=== PATIENT | female | born 1980 | race Caucasian/White ===

== ENCOUNTER 2018-07-04 21:13 | Emergency (ER) | payer SELFPAY ==
[2018-07-04 21:13] VITALS: BP 141/78; PULSE 59; RESP 16; TEMP 36.5; O2SAT 96; BMI 34.4
--- NOTE | 2018-07-04 22:28 | ED.VISSUMM ---
- ER Visit Summary Date of Service: 07/04/18 Chief Complaint: Dental pain History of Present Illness: The patient is a 38 F with 3 days of right upper dental pain. No jaw swelling no fever chills no difficulty swallowing Physical Examination: Tenderness over the first molar right upper side. No periapical abscess no jaw swelling. Emergency Department Course and Treatment: [I will treat with antibiotics and analgesia.] Treatment Plan: [] Disposition: [Discharge stable condition] Impression: [Odontalgia] This note was generated with [employer] dictation software. It may contain incorrect words, spelling, and punctuation that were not noted in review of the chart prior to signing ED Disposition - Plan for ED Patient: Disposition: Home or Assisted Living Instructions: ED Tooth Pain Prescriptions: Naproxen [Naprosyn] 500 mg PO BID PRN #20 tab Clindamycin [Cleocin] 150 mg PO 4X/DAY #40 cap Referrals: Everton Riggins MD [Primary Care Provider] - 3-5 Days
--- NOTE | 2018-07-04 22:32 | ED.DCSUM_ITS ---
- ER Visit Summary Date of Service: 07/04/18 Chief Complaint: Dental pain History of Present Illness: The patient is a 38 F with 3 days of right upper dental pain. No jaw swelling no fever chills no difficulty swallowing Physical Examination: Tenderness over the first molar right upper side. No periapical abscess no jaw swelling. Emergency Department Course and Treatment: [I will treat with antibiotics and analgesia.] Treatment Plan: [] Disposition: [Discharge stable condition] Impression: [Odontalgia] This note was generated with [employer] dictation software. It may contain incorrect words, spelling, and punctuation that were not noted in review of the chart prior to signing ED Disposition - Plan for ED Patient: Disposition: Home or Assisted Living Instructions: ED Tooth Pain Prescriptions: Naproxen [Naprosyn] 500 mg PO BID PRN #20 tab Clindamycin [Cleocin] 150 mg PO 4X/DAY #40 cap Referrals: Everton Riggins MD [Primary Care Provider] - 3-5 Days
[2018-07-04] MEDS: HYDROcodone Bitartrate/Apap 5/325 Tablet PO (22:36)
[2018-07-04] MEDS: Clindamycin HCl 150 MG Capsule 300 MG PO (22:40)
[2018-07-04 22:41] VITALS: PULSE 64; RESP 15; O2SAT 94
== END 2018-07-04 22:42 | disposition home or self-care (01) ==
PROVIDERS: Emergency Provider Emergency Medicine; Family Provider Family Medicine; PCP Family Medicine
DX: K08.89 Other specified disorders of teeth and supporting structures (principal); Z72.0 Tobacco use
CPT/HCPCS: 99283

== ENCOUNTER 2019-09-11 08:53 | Emergency (ER) | payer OTHER, SELFPAY ==
[2019-09-11 08:54] VITALS: BP 140/73; PULSE 80; RESP 16; TEMP 36.4; O2SAT 95; BMI 37.5
--- NOTE | 2019-09-11 09:11 | ED.DCSUM_ITS ---
History of Present Illness Chief Complaint: Headache Informant: Patient Narrative: 39-year-old female presents with concern for nausea, vomiting, headache, upper respiratory congestion. States this began approximately 1 week ago. States that she was feeling improved until last night when she began having a headache as well as vomiting again. States that she has fullness in her bilateral ears. Denies any fever or chills. States that she has a persistent smoker's cough. States that this may have been slightly increased. Denies any abdominal pain, urinary symptoms. Denies any vaginal bleeding or discharge. States that her daughter has similar symptoms. Past Medical History - Allergies and Home Meds Allergies/Adverse Reactions: Allergies diphenhydramine HCl [From Benadryl] Adverse Reaction (Verified 09/11/19 08:56) Itching Penicillins Adverse Reaction (Verified 09/11/19 08:56) Unknown Primary Care Physician: Everton Riggins MD [NON-STAFF] - Past Medical History: None Surgical History: tonsillectomy, - - Bilateral tubal ligation 8 years ago, ear tubes Lives: With Family Smoking Status: Current every day smoker - Family History Maternal Family History: Reports: No pertinent history Sibling Family History: Reports: No pertinent history Paternal Family History: Reports: No pertinent history Review of Systems General: Denies: Chills, Fever, Sweats Eyes: Denies: Visual changes - bilaterally, Diplopia ENT: Reports: Bilateral ear pain, Rhinorrhea. Denies: Sore throat Cardiovascular: Denies: Chest pain, Palpitations Respiratory: Reports: Cough. Denies: Dyspnea, Dyspnea on exertion Gastrointestinal: Reports: Nausea, Vomiting. Denies: Abdominal pain, Diarrhea, Melena, Hematochezia Genitourinary: Denies: Dysuria, Hematuria, Frequency Musculoskeletal: Denies: Back pain, Extremity Pain Skin: Denies: Rash, Wounds Neurological: Reports: Headache. Denies: Weakness, Numbness Physical Exam Vital Signs/Narrative: Vital Signs Temp Pulse Resp BP Pulse Ox 09/11/19 08:54 97.5 F L 80 16 140/73 H 95 Inital Vital Signs reviewed: Yes General: Well nourished, Well developed, No Acute Distress Head: Normocephalic, Atraumatic Eyes: Perrl, EOMI ENT: Moist mucous membranes, No rhinorrhea, - - Bilateral effusions without erythema or retraction. Neck: Supple, Nontender Cardiovascular: Regular rate, Regular rhythm, No murmurs Respiratory: No distress, CTA bilaterally, Chest nontender Abdomen: Soft, Nontender, Nondistended, Normal bowel sounds Back: Nontender, Normal Inspection Extremities: Nontender, No edema Skin: Normal color, No rash Neurological: Alert, Oriented x3, Cranial nerves II-XII grossly intact, Normal Strength, Normal Sensation Psychological: Normal affect, Normal Mood Diagnostic/Tx/Re-eval Clinical Impression(s) from Imaging Studies Chest X-Ray 09/11/19 09:37 IMPRESSION: Normal x-ray examination of the chest. Electronically Signed: Trev Manzo MD at 10:11 EDT , Service support , Laboratory Data 09/11/19 09/11/19 09/11/19 09:20 09:20 09:23 WBC 12.4 H RBC 4.82 Hgb 16.3 H Hct 45.9 MCV 95.2 MCH 33.8 H MCHC 35.5 RDW Std Deviation 46.7 H RDW Coeff of Sebastian 13.3 Plt Count 284 MPV 11.3 Immature Gran % (Auto) 0.600 Neut % (Auto) 73.3 H Lymph % (Auto) 19.7 [place] % (Auto) 5.3 Eos % (Auto) 0.7 Baso % (Auto) 0.4 Absolute Neuts (auto) 9.1 H Absolute Lymphs (auto) 2.44 Nucleated RBC % 0 Sodium Potassium Chloride Carbon Dioxide Anion Gap BUN Creatinine Estim Creat Clear Calc Est GFR (MDRD) Af Amer Est GFR (MDRD) Non-Af BUN/Creatinine Ratio Glucose Calcium Total Bilirubin AST ALT Alkaline Phosphatase Total Protein Albumin Globulin Albumin/Globulin Ratio Urine Color Brown Urine Clarity Turbid Urine pH 5.0 Ur Specific Shirland 1.030 Urine Protein 15 H Urine Glucose (UA) Normal Urine Ketones 5 H Urine Occult Blood Negative Urine Nitrite Negative Urine Bilirubin 1 H Urine Urobilinogen 1 H Ur Leukocyte Esterase 25 H Urine RBC 0 SEEN Urine WBC 0 SEEN Ur Squamous Epith Cells 0-5 SEEN Amorphous Sediment 4+ Urine Bacteria 0 SEEN Urine Mucus 0 SEEN Urine Test Negative 09/11/19 09:23 WBC RBC Hgb Hct MCV MCH MCHC RDW Std Deviation RDW Coeff of Sebastian Plt Count MPV Immature Gran % (Auto) Neut % (Auto) Lymph % (Auto) [place] % (Auto) Eos % (Auto) Baso % (Auto) Absolute Neuts (auto) Absolute Lymphs (auto) Nucleated RBC % Sodium 138 Potassium 3.8 Chloride 109 H Carbon Dioxide 24.0 Anion Gap 5 BUN 9 Creatinine 0.90 Estim Creat Clear Calc 80.80 Est GFR (MDRD) Af Amer 89 Est GFR (MDRD) Non-Af 74 BUN/Creatinine Ratio 10.0 Glucose 125 H Calcium 8.4 L Total Bilirubin 0.50 AST 13 L ALT 24 Alkaline Phosphatase 103 Total Protein 7.0 Albumin 3.9 Globulin 3.1 Albumin/Globulin Ratio 1.3 Urine Color Urine Clarity Urine pH Ur Specific Shirland Urine Protein Urine Glucose (UA) Urine Ketones Urine Occult Blood Urine Nitrite Urine Bilirubin Urine Urobilinogen Ur Leukocyte Esterase Urine RBC Urine WBC Ur Squamous Epith Cells Amorphous Sediment Urine Bacteria Urine Mucus Urine Test - Medical Decision Making Patient appears well nontoxic. Vital signs within normal limits. No focal neurologic deficit. No meningeal signs. Lab work within normal limits as well as negative chest x-ray. Patient was given Toradol, Zofran, 1 L of fluid. States this did help resolve her symptoms. Will be given Zofran for home. Advised on Motrin and Tylenol for pain. Advised on home quarantine until coronavirus testing can be resulted. Asked to return for any new or worsening symptoms. Discharged home in stable condition. Impression: 1. Viral illness 2. Nausea and vomiting 3. Headache ED Disposition - Plan for ED Patient: Disposition: Home or Assisted Living Instructions: ED Headache Unspecified, ED Upper Resp Infec No Abx Tx Prescriptions: Ondansetron [Zofran Odt] 4 mg PO Q8H PRN PRN #10 tab PRN Reason: Nausea Transmission Status: Pending to [facility] #[id number] Referrals: Everton Riggins MD [NON-STAFF] -
[2019-09-11] MEDS: 0.9% Normal Saline 1,000 ML 1000 ML IV (09:23)
[2019-09-11] MEDS: Ketorolac 15 MG/ML Vial IV (09:24)
[2019-09-11] MEDS: Ondansetron 4 MG/2 ML Vial IV (09:24)
[2019-09-11 09:32] LABS: Bacteria 0 SEEN /hpf (None Seen); Mucous, Urine 0 SEEN /hpf (<or=2+); Red Blood Cells-Urine 0 SEEN /hpf (0-5); White Blood Cells 0 SEEN /hpf (0-5)
[2019-09-11 09:36] LABS: Color, Urine Brown (Yellow); Glucose, Dipstick Normal (Normal); Ketone-Dipstick 5 mg/dl (Negative); Leukocyte Esterase-Dipstick 25 /ul (Negative); Nitrite-Dipstick Negative (Negative); Occult Blood-Urine Negative /ul (Negative); Protein-Dipstick 15 mg/dl (Negative); Urine Clarity Turbid (Clear); Urine Urobilinogen 1 mg/dl (Normal)
[2019-09-11 09:37] LABS: Absolute Lymphocyte Count 2.44 X10^3/uL (0.83-4.51); Absolute Neutrophil Count 9.1 X10^3/uL (2.0-7.7); Basophil# 0.05 X10^3/uL; Basophil% 0.4 % (0-1); Eosinophil# 0.09 X10^3/uL; Eosinophils% 0.7 % (0-5); Hematocrit 45.9 % (37-47); Hemoglobin 16.3 g/dL (12.0-15.0); Lymphocyte # 2.44 X10^3/ul (4.0); Lymphocyte % 19.7 % (19-41); Mean Corp Hgb Conc 35.5 g/dL (32-36); Mean Corpuscular Hgb 33.8 pg (27.0-32.0); Mean Corpuscular Volume 95.2 fL (81-99); Mean Platelet Vol. 11.3 fl (6.2-12.0); Monocyte# 0.66 X10^3/uL; Monocyte% 5.3 % (0-10); NRBC Flagged by Analyzer 0 % (0-5); Neutrophil # 9.06 X10^3/uL (2.7-7.7); Neutrophil % 73.3 % (47-70); Platelet Count 284 K/mm3 (150-450); RBC Distribution Width CV 13.3 % (11.6-14.6); RBC Distribution Width SD 46.7 fl (35.1-43.9); Red Blood Count 4.82 M/mm3 (4.2-5.4); White Blood Count 12.4 K/mm3 (4.4-11.0)
--- NOTE | 2019-09-11 09:37 | RAD_ITS ---
STUDY: X-RAY CHEST REASON FOR EXAM: Female, 39 years old. N/V SINCE SATURDAY WITH HEADACHE TECHNIQUE: Single AP portable view of the chest. COMPARISON: 2012 FINDINGS: The lungs are clear and expanded. There is no demonstrated pleural abnormality. Normal size heart. Normal mediastinum and shayne. Normal visualized pulmonary arteries. Normal visualized aortic arch and descending thoracic aorta. Normal visualized thoracic spine. Normal visualized ribs, clavicles, and shoulders. There is no demonstrated abnormality of the visualized soft tissue structures of the upper abdomen. RAD/Chest 1 View (Portable) IMPRESSION: Normal x-ray examination of the chest. Electronically Signed: Trev Manzo MD at 10:11 EDT , Service support ,
[2019-09-11 09:44] LABS: Urine Bilirubin Dipstick 1 mg/dL (Negative)
[2019-09-11 09:45] LABS: Squamous Epithelial Cells - UA 0-5 SEEN /hpf (5-10)
[2019-09-11 09:46] LABS: Amorphous Sediment 4+; Internal QC Validated? YES +Cl - CLEAR BKGD; Pregnancy, Urine Negative Negative
[2019-09-11 09:51] LABS: ALB/GLOB Ratio 1.3 RATIO (0.9-2.4); AST(SGOT) 13 U/L (15-37); Alanine Aminotransfer ALT/SGPT 24 U/L (13-56); Albumin, Serum 3.9 g/dL (3.2-5.0); Alkaline Phosphatase 103 U/L (45-117); Anion Gap 5 (5-15); BUN 9 mg/dL (7-18); Calcium,Total 8.4 mg/dL (8.5-10.1); Chloride 109 mmol/L (98-107); EST Glomerular Filtration Rate 74 mL/min (>60); Est Glom Filt Rate - Afr Amer 89 mL/min (>60); Globulin 3.1 g/dL (2.2-4.2); Glucose 125 mg/dL (74-106); Potassium 3.8 mmol/L (3.5-5.1); Sodium Level 138 mmol/L (136-145)
[2019-09-11 10:32] VITALS: BP 92/69; PULSE 66; RESP 16; O2SAT 96
--- NOTE | 2019-09-11 10:33 | ED.RN ---
REVIEWED D/C INSTRUCTIONS, FOLLOW UP CARE, PRESCRIPTION, AND S/S THAT WOULD WARRANT A RETURN TO THE ED WITH PT. PT VERBALIZED AN UNDERSTANDING AND DENIES FURTHER QUESTIONS FOR THIS RN. PT SKIN P/W/D, RESP EVEN AND UNLABORED, PT A&O X 3, NO DISTRESS NOTED. PT AMBULATED OUT OF ED, GAIT STEADY.
[2019-09-11 11:39] LABS: Probe Check PASS; Specimen Processing Control PASS
== END 2019-09-11 10:34 | disposition home or self-care (01) ==
PROVIDERS: Emergency Provider Emergency Medicine
DX: R11.2 Nausea with vomiting, unspecified (principal); B34.9 Viral infection, unspecified; R51 Headache; J41.0 Simple chronic bronchitis; F17.200 Nicotine dependence, unspecified, uncomplicated
CPT/HCPCS: 71045; 80053; 81001; 81025; 85025; 87635; 94799; 96361; 96374; 96375; 99284; J7030; A4216; J2405; U0003

== ENCOUNTER → 2020-04-26 10:40 | Outpatient (CLI) | payer OTHER, SELFPAY ==
--- NOTE | 2020-04-26 | IMM_PTH ---
PATIENT: ISABELLE DOUGHERTY LOC: [facility] U#:[id number] AGE/SX: 44/F ROOM: RE04/26/[address]: Dr. Rosa Aquino MD : 1980 BED: DIS: SPEC #: [id number] RECD: 04/27/20 11:16 STATUS: JAY REQ #: [id number] MARIZOL: 04/26/20 00:[address]: Rosa Aquino DEPT: IMMUNOHISTOCHEMISTRY RECD BY: Ana Vasquez ENTERED: 04/27/20 11:23 SP TYPE: IMMUNO OTHR DR: No Primary Care Phys Tissues: Left breast, NOS Procedures: E-CAD (initial) SMA (add) CALPONIN-1 (add) CK8 (add) P40 (add) PHYSICIAN & INSTITUTION [place] [id number] SPECIMEN INFORMATION: Tissue Source: Left breast, inferior lateral, stereotactic core biopsy Clinical Info: Left breast inferior lateral quadrant microcalcification Specimen Number: [id number] #2 & 4 CPT code: 84332, 18616 x4 METHODOLOGY: Deparaffinized sections of prefer/formalin-fixed tissue or PAP/DQ stained slides are incubated with monoclonal/polyclonal antibodies/oligonucleotide probes. Localization is made via biotin free immunoperoxidase method. Appropriate controls are performed and reacted as expected. Results on target cell population are indicated in the following table: RESULTS: ANTIBODY / CLONE RESULT Block 2 E-Cad (ECH-6) negative CK8 (41bvpnR60) positive Block 4 P40 (BC28) positive Calponin-1 (RO697K) positive Actin (1A4) positive These tests were developed and their performance characteristics determined by [facility]. They may not have been cleared or approved by the U.S. Food and Drug Administration. The FDA has determined that such clearance or approval is not necessary. The above immunohistochemical/dualISH markers are ordered and reviewed by the Pathologist. INTERPRETATION: Left breast, inferior lateral, stereotactic core biopsy: Atypical lobular hyperplasia. Adenosis. AM:alex 04/28/2020
--- NOTE | 2020-04-26 11:00 | BRBX_PTH ---
PATIENT: ISABELLE DOUGHERTY LOC: [facility] U#:[id number] AGE/SX: 44/F ROOM: RE04/26/[address]: Dr. Rosa Aquino MD : 1980 BED: DIS: SPEC #: [id number] RECD: 04/26/20 12:00 STATUS: JAY EMILIE #: [id number] MARIZOL: 04/26/20 11:[address]: Rosa Aquino DEPT: SURGICAL PATHOLOGY RECD BY: Judit Argueta ENTERED: 04/26/20 12:35 SP TYPE: BREAST BX RAVI DR: No Primary Care Phys Tissues: Breast, NOS Procedures: Surgery Specimen Level IV HEADER OPERATION: Left stereotactic needle core biopsy PRE-OP DIAGNOSIS: Left breast inferior lateral quadrant microcalcification TISSUE SUBMITTED: Left breast tissue ISCHEMIC TIME: 2 minutes FIXATION TIME: 8.5 hours MICROSCOPIC DIAGNOSIS Left breast, inferior lateral, core biopsy: Intraductal hyperplasia without atypia. Adenosis with associated microcalcifications. Focal atypical lobular hyperplasia. Fibrocystic change. No evidence of malignancy. See comment. AM:alex 04/27/2020 COMMENT Immunohistochemistry ([id number]) supports the above diagnosis. Case has been reviewed in consultation with Dr. Umanzor who concurs with the above diagnosis. IDC:BIN MICROSCOPIC DESCRIPTION Slides are reviewed. GROSS DESCRIPTION Received in fixative is one container labeled with the patient name and designated left breast. The specimen consists of multiple elongated fragments of melendez-yellow fibroadipose tissue that in aggregate measure 5 x 3 x 0.9 cm. The entire specimen is submitted in six cassettes. / BIN:alex 04/26/20 TC:5 CPT: 12117
--- NOTE | 2020-04-26 12:22 | OP.PCM_ITS ---
Report of Operation Date of Procedure: 04/26/20 Pre-Operative Diagnosis: abnormal calcifications on left breast mammograms Post-Operative Diagnosis: same Surgery/Procedure Performed:: left stereotactic breast biopsy Description of Surgical Findings:: abnormal calcifications of inferior aspect of left breast Type of Anesthesia:: Local - 1% xylocaine Specimen's removed: left breast tissue Estimated Blood Loss (mL): minimal Fluids Replaced: none Description of Procedure: After informed consent was given, the patient was brought into the Breast Biopsy suite. Appropriate time out protocol was followed. The patient was placed in the prone position on the stereotactic biopsy table. The patient?s left breast was then placed in the opening at the head of the biopsy table. A energy management specialist compression mammogram was then obtained in the lateral view. The suspicious radiological lesion was thus identified. Stereo pictures of the lesion were then taken for XYZ coordinates. The Mammotome biopsy stylus was then positioned where it would be entering into the patient?s breast. The skin at this site was then cleansed with a surgical skin preparation. The skin and subcutaneous tissues at this site were then infiltrated with 1% xylocaine. A small skin incision was made with an 11 blade scalpel. The biopsy stylus was then positioned into the patient?s breast at the proper coordinates of depth. Using the Mammotome vacuum-assist device, several core samples of breast tissue were obtained. A specimen mammogram was the obtained. It revealed that the abnormal calcifications were within the specimen. I reviewed this personally and concluded that the tissue sampling was adequate. A hemostatic marker clip was then placed into the biopsy cavity and a energy management specialist film revealed that it was properly deployed. The patient was then placed in the supine position and pressure was applied to the breast until no active bleeding was noted. A nylon suture was placed to reapproximate the skin. A unilateral mammogram in the CC and MLO view were then taken which revealed that the marker clip was in the same area as the previous suspicious lesion. The patient tolerated the procedure well and was discharged from the Breast Biopsy suite in good condition. - Complications none noted
== END ==
PROVIDERS: Referring Provider Surgery; Visit Provider Surgery
DX: R92.1 Mammographic calcification found on diagnostic imaging of breast (principal)
CPT/HCPCS: 19081; 88305; 88341; 88342; J7050

== ENCOUNTER 2020-05-10 07:32 | Day surgery (SDC) | payer OTHER, SELFPAY ==
--- NOTE | 2020-05-08 17:40 | HP.PCM_ITS ---
History and Physical Date of Admission: 05/10/20 Amanda is here for follow up of left breast biopsy done by mammographic stereotactic on 04/26/2020. Pathology reveals - MICROSCOPIC DIAGNOSIS Left breast, inferior lateral, core biopsy: Intraductal hyperplasia without atypia. Adenosis with associated microcalcifications. Focal atypical lobular hyperplasia. Fibrocystic change. No evidence of malignancy. RESULTS: E-Cad (ECH-6) negative CK8 ([id number]) positive P40 (BC28) positive Calponin-1 (PF035W) positive Actin (1A4) Positive She denies problems from the biopsy except for bruising. ? ? PAST MEDICAL HISTORY: None ? PAST SURGICAL HISTORY: Ear surgery Tubes tied Tonsillectomy Vaginoscopy ? MEDICATIONS: Calcium supplementation Diphenhydramine ? ALLERGIES: benadryl, penicillin ? SOCIAL HISTORY: TOB use - yes ? REVIEW OF SYSTEMS: Denies fevers Some bruising at site ? EXAMINATION: Ecchymoses at left breast site with well healed incision ? IMPRESSION: Atypical lobular hyperplasia - left breast ? DISCUSSION/PLAN: I have discussed the above with the patient and her . I have offered the following - open left breast biopsy via wire localization versus continued observation with follow up left breast mammograms in 6 months. They choose the former. I have described the procedure to them, wire localization and then open breast biopsy at [facility]. I have counseled them as to the risks of the procedure, including but not limited to: infection, bleeding, injury to any blood vessels/nerves, scar tissue, cosmetic deformity, wound infections, etc. - they understand. ? The patient was offered a surgery/procedure. The provider and patient have disc ussed in detail the risk of exposure to and/or potential harm posed by the COVID-19 virus with having a surgery/procedure at this time versus the risk of? delaying the surgery/procedure. It is not possible to know either the risk of delaying the surgery or procedure or chance of getting an infection with perfect accuracy, but a joint decision was made between the patient and the provider ?to proceed at this time with the scheduled surgery/procedure. ? The patient wishes to proceed. I have answered all questions to the patient?s satisfaction and the patient has no further questions.
--- NOTE | 2020-05-10 07:53 | BI_ITS ---
SURGICAL BREAST SPECIMEN RADIOGRAPH CLINICAL: Document presence of tissue clip marker in biopsy specimen. FINDINGS: Specimen shows presence of tissue clip marker. Electronically Signed: Bright Frazier MD at 11:36 EDT , Service support , BI/Breast Biopsy Specimen
[2020-05-10 08:05] LABS: Internal QC Validated? YES +Cl - CLEAR BKGD
[2020-05-10 08:08] LABS: Pregnancy, Urine Negative Negative
[2020-05-10] MEDS: Lactated Ringers 1,000 ML 75 ML IV (08:12)
[2020-05-10 08:13] VITALS: BP 123/49; PULSE 53; RESP 16; TEMP 36.2; O2SAT 98; BMI 35.2
--- NOTE | 2020-05-10 09:14 | DCINST_ITS ---
Discharge Diet: No Restrictions Discharge Activity: Return to Normal Activity, May not drive while taking narcotic pain medications. Call your doctor if your incision/area has: Continuous Slow Oozing, Foul Smelling Discharge Additional Instructions: Recommended pain control regimen - May take 600 mg ibuprofen (Motrin) and then in 3-4 hours, may take 650 mg acetaminophen (Tylenol), then in 3-4 hours may take 600 mg ibuprofen, then in 3- 4 hours may take 650 mg acetaminophen and so on for 2-3 days May take narcotic pain medication for pain that is not controlled by above and at night for comfort through the night Leave dressings in place May get dressings wet in shower - do not scrub in the area and pat dry Do not soak - no tub baths/swimming For breast surgery - Wear supportive bra during the day Swelling and bruising will occur in the area, ice packs to the area may provide comfort, apply as tolerated Avoid excessive bouncing/jumping for at least two weeks Please call for a follow up appointment at the office to be seen in 1 week for a date and time available at your convenience. Call . Allergies/Adverse Reactions: Allergies diphenhydramine HCl [From Benadryl] Adverse Reaction (Verified 05/10/20 08:12) Itching Penicillins Adverse Reaction (Verified 05/10/20 08:12) Unknown Medications to take at Discharge Calcium Carbonate [Tums] 500 mg PO DAILY@0800 PRN 05/05/20 Hydrocodone Bitart/Apap 5-325 [[place] 5MG-325MG] 1 tablet PO Q8H PRN 4 Days #10 tablet 05/10/20 The following prescriptions were given: Hydrocodone Bitart/Apap 5-325 [[place] 5MG-325MG] 1 tablet PO Q8H PRN 4 Days #10 tablet PRN Reason: Pain Transmission Status: Sent to [facility] #30 Primary Care Physician: Care Physician,No Primary [Primary Care Provider] - Please Follow Up With: Rosa Aquino MD When: see above, call
--- NOTE | 2020-05-10 09:20 | OP.PCM_ITS ---
Report of Operation Date of Procedure: 05/10/20 Pre-Operative Diagnosis: left breast atypical lobular hyperplasia by needle core biopsy Post-Operative Diagnosis: same Surgery/Procedure Performed:: left breast biopsy via wire localization Description of Surgical Findings:: lower outer quadrant of left breast Type of Anesthesia:: General Anesthesiologist: Camden Marie Specimen's removed: left breast tissue Estimated Blood Loss (mL): < 5 Fluids Replaced: 800 ml RL Description of Procedure: After informed consent was given, the patient was brought into the Breast Stereotactic Radiology suite. Appropriate time out protocol was followed. The patient was then placed in the prone position on the Barbeau stereotactic table. The patient?s left breast was placed in the opening at the head of the table. A nuclear station operator compression mammogram was then obtained in the lateral view. The marker clip that was previously placed was identified. Stereo pictures of the lesion were then taken for XYZ coordinates. The Kopans needle was then positioned where it would be entering into the patient?s breast. The skin at this site was then cleansed with a surgical skin preparation. The skin and subcutaneous tissues at this site were then infiltrated with 1% xylocaine. The Kopans needle was then positioned into the patient?s breast at the proper coordinates of depth. A nuclear station operator film was obtained which revealed the wire in proper position. The patient was then placed in the supine position and the wire was taped into place. A unilateral mammogram in the CC and MLO view were then taken for use in the OR. The patient tolerated this portion of the procedure well and was brought to the AC awaiting surgery in the OR. The patient was then brought to the Operating Room. Appropriate time out protocol was followed. The patient was then placed on the operating table in the supine position. A wire had already been placed in the stereotactic biopsy room in the radiology department as described above. The left breast with the wire in placed was then prepped with a sterile surgical skin preparation and sterile surgical drapes were placed. The skin and subcutaneous tissues at the site of the breast lesion was then infiltrated with 1% xylocaine with epinephrine. A transverse skin incision was then made in the inferior outer quadrant of the breast at the previous biopsy site with a 15 blade scalpel and carried down through to the subcutaneous tissues. Hemostasis was controlled with electrocautery. The wire was then palpated out within the breast tissue. The breast tissue surrounding the wire was then carefully palpated out and from the surrounding tissues using electrocautery. The breast tissue, once from the breast, was then forwarded to the radiology department, where a specimen mammogram revealed that the marker clip was within the specimen. I personally reviewed this and made the determination that the tissue obtained was appropriately adequate. The breast tissue was then forwarded to pathology for analysis. The wound cavity was carefully examined. No further suspicious tissue was palpated or visualized. Hemostasis was carefully controlled with electrocautery. The subdermal tissues were then approximated with vicryl suture. The incision was then reapproximated close using running monocryl suture. Cavilon and steristrips were then placed to reinforce the skin closure. Sponge, needle, and instrument count were verified and correct at the time of skin closure. A sterile dressing was then applied. The patient was then brought to the Recovery Room in stable condition. - Complications none noted - Admit VTE Documentation VTE Present on Admission: Yes VTE Mechan Device Prophylaxis: SCD's
--- NOTE | 2020-05-10 10:18 | BREAST_PTH ---
PATIENT: ISABELLE DOUGHERTY LOC: [facility] [place] U#:[id number] AGE/SX: 40/F ROOM: RE05/10/[address]: Dr. Rosa Aquino MD : 1980 BED: DIS: 05/10/2020 SPEC #: [id number] RECD: 05/10/20 10:22 STATUS: JAY REJason #: [id number] MARIZOL: 05/10/20 10:[address]: Rosa Aquino DEPT: SURGICAL PATHOLOGY RECD BY: Judit Argueta ENTERED: 05/10/20 10:58 SP TYPE: BREAST OTHR DR: No Primary Care Phys Tissues: Breast, NOS Procedures: Surgery Specimen Level V HEADER OPERATION: Breast biopsy via wire localization PRE-OP DIAGNOSIS: Atypical lobular hyperplasia, left breast TISSUE SUBMITTED: Left breast tissue MICROSCOPIC DIAGNOSIS Left breast, wire localization excisional biopsy: Fibrocystic changes and moderate intraductal hyperplasia without atypia. 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 Changes consistent with previous biopsy site. Focal microcalcifications. Negative for malignancy. See comment. SJ:alex 05/13/2020 COMMENT Atypical lobular hyperplasia is not identified in the sections examined. More than 95% of the specimen is submitted. Please make reference to previous specimen ([id number]) left breast, inferior lateral, core biopsy with diagnosis of intraductal hyperplasia without atypia, adenosis with associated microcalcifications, focal atypical lobular hyperplasia and fibrocystic changes. Case has been reviewed in consultation with Dr. Reno who concurs with the above diagnosis. IDC:AM MICROSCOPIC DESCRIPTION Slides are reviewed. GROSS DESCRIPTION Received in fixative is one container labeled with the patient's name and designated left breast tissue. The specimen consists of a piece of fibroadipose tissue with needle localization measuring 6.5 x 5 x 1.5 cm. No orientation is provided. The specimen is inked, serially sectioned and reveals a biopsy cavity measuring 3.5 x 1.5 x 0.5 cm. No obvious mass lesion is identified. The biopsy cavity is 0.5 cm away from the closest margin. Clerk Entry Level sections are submitted in 12 cassettes. Cassette 1 contains one end of the specimen and cassette 12 contains the other end of the specimen. The entire biopsy cavity with surrounding tissue is submitted. More than 95% of the specimen is submitted. Sections will be submitted after additional fixation. / BIN:alex 05/11/20 TC:5 CPT: 98872
[2020-05-10] MEDS: Lidocaine 1% /Epi 1:100 (20ml) 20 ML Vial (10:33)
[2020-05-10 10:47] VITALS: BP 106/59; BP 123/49; PULSE 66; RESP 16; TEMP 36.6; O2SAT 95
[2020-05-10 11:00] VITALS: BP 123/49; BP 99/62; PULSE 58; RESP 16; O2SAT 96
[2020-05-10 11:15] VITALS: BP 123/49; BP 91/53; PULSE 55; RESP 16; TEMP 36.8; O2SAT 96
[2020-05-10] MEDS: HYDROcodone Bitartrate/Apap 5/325 Tablet PO (11:39)
[2020-05-10 12:04] VITALS: BP 100/65; BP 123/49; PULSE 58; RESP 16; TEMP 36.7; O2SAT 97
== END 2020-05-10 12:09 | disposition home or self-care (01) ==
LOC: SDC 07:35 → AC 07:38
PROVIDERS: Anesthesiology; Referring Provider Surgery; Visit Provider Surgery
PROC: (CPT 19125; principal; 2020-05-10 08:45)
DX: N60.92 Unspecified benign mammary dysplasia of left breast (principal); Z20.822 Contact with and (suspected) exposure to COVID-19; F41.0 Panic disorder [episodic paroxysmal anxiety]; F17.200 Nicotine dependence, unspecified, uncomplicated
CPT/HCPCS: 00400; 19125; 19281; 76098; 81025; 88305; 88307; J7120; J2405

== ENCOUNTER 2020-08-17 19:47 | Emergency (ER) | payer OTHER, SELFPAY ==
[2020-08-17 19:48] VITALS: BP 127/77; PULSE 75; RESP 18; TEMP 37.1; O2SAT 97; BMI 35.9
--- NOTE | 2020-08-17 20:49 | EX.ED.DYSGE1 ---
HPI History of Present Illness Chief Complaint: Cough Narrative Narrative: Patient presents with cough congestion rhinorrhea sinus tenderness and bilateral ear pain for 6 days. No fever or chills no shortness of breath. No neck pain or neck stiffness. PFSH PFSH Home Medications calcium carbonate 500 mg PO DAILY@0800 PRN 05/05/20 [History Last Taken Unknown] azithromycin 500 mg PO DAILY 4 Days #4 tab 08/17/20 [Rx Last Taken Unknown] Allergy/AdvReac Type Severity Reaction Status Date / Time diphenhydramine HCl AdvReac Itching Verified 08/17/20 19:50 [From Benadryl] Penicillins AdvReac Unknown Verified 08/17/20 19:50 Social History Smoking Status: Current every day smoker ROS ROS ED ROS Narrative Past medical history: Reviewed Medications: Reviewed Social history: Noncontributory Review of systems: All systems negative except as indicated General: No fever Eyes: No visual changes ENT: Upper airway congestion ear pain sore throat Neck: No neck pain Cardiovascular: No chest pain Respiratory: No shortness of breath or cough Gastrointestinal: No abdominal pain, nausea vomiting or diarrhea Genitourinary: No dysuria Musculoskeletal: Denies myalgias no difficulty with ambulation Skin: No rash Neurological: No memory loss, confusion or any focal weakness Psych: No recent behavioral changes Hematologic: No easy bleeding or easy bruising EXAM Physical Exam Narrative Exam Narrative: Physical exam General: Well nourished, Well developed, No Acute Distress Head: Normocephalic, Atraumatic Eyes: Conjunctiva not pale ENT: Patient has bilateral TM erythema and bulging membranes. She has sinus tenderness. She has beefy red swollen nasal turbinates. She has postnasal drip. She has a normal soft palate. Neck: Supple, Nontender, No lymphadenopathy Cardiovascular: Regular rate, Regular rhythm Respiratory: No distress, CTA bilaterally Abdomen: Soft, Nontender, Nondistended Back: Nontender, Normal Inspection. Negative for: CVA tenderness Extremities: Nontender, No edema Skin: Normal color, No rash Neurological: Alert, Normal Strength, Normal Sensation Psychological: Normal affect Const Vital Signs: 08/17/20 19:48 Temperature 98.7 F Temperature Source Temporal Pulse Rate 75 Respiratory Rate 18 Blood Pressure 127/77 H Blood Pressure Mean 93 Pulse Ox 97 Oxygen Delivery Method Room Air MDM MDM MDM Narrative Medical decision making narrative: Patient has sinusitis she also has bilateral otitis media, she is allergic to penicillin doubt for I will treat with a azithromycin. Discharge Plan Triage Chief Complaint: Cough ED Provider: Anuj Bob Dx/Rx/DC Orders Clinical Impression: Otitis media Instructions: ED Otitis Media Antibiotic ... Prescriptions: New azithromycin 500 mg tablet 500 mg PO DAILY 4 Days Qty: 4 RF: 0 No Action calcium carbonate 500 MG tablet 500 mg PO DAILY@0800 PRN (Reason: Indigestion) RF: 0 Primary Care Provider: Care Physician,No Primary Referrals: Care Physician,No Primary [Primary Care Provider] - 3-5 Days Disposition Disposition: Home, Self Care
[2020-08-17] MEDS: Azithromycin 250 MG Tablet 500 MG PO (21:10)
== END 2020-08-17 21:20 | disposition home or self-care (01) ==
LOC: ED 20:59
PROVIDERS: Emergency Provider Emergency Medicine
DX: H66.93 Otitis media, unspecified, bilateral (principal); J32.9 Chronic sinusitis, unspecified; F17.200 Nicotine dependence, unspecified, uncomplicated; Z88.0 Allergy status to penicillin
CPT/HCPCS: 99283

== ENCOUNTER 2021-02-28 16:34 | Emergency (ER) | payer OTHER, SELFPAY ==
[2021-02-28 16:35] VITALS: BP 137/66; PULSE 63; RESP 16; TEMP 36.9; O2SAT 96; BMI 37.5
--- NOTE | 2021-02-28 17:16 | EX.ED.DYSGE1 ---
HPI History of Present Illness Chief Complaint: Ear Problem Informant: patient Narrative Narrative: 39 history decreased hearing right ear, yesterday cannot hear at all. Was using eardrops. Uses Q-tips on the outside. Denies fevers or pain. States today noticed some mild symptoms on the left side. COVID-positive 13 days symptoms only for 2 days. Nonvaccinated. Currently denies any COVID symptoms. States only had mild congestion. No other complaints. Does not take penicillins due to father with allergies. Has tolerated amoxicillin. Prior similar symptoms: No PFSH PFSH Medical History (Updated 03/01/21 @ 00:[address] Darius Denney DO) COVID Home Medications calcium carbonate 500 mg PO DAILY@0800 PRN 05/05/20 [History Last Taken Unknown] azithromycin 500 mg PO DAILY 4 Days #4 tab 08/17/20 [Rx Last Taken Unknown] amoxicillin 1,000 mg PO Q12H #40 tab 02/28/21 [Rx Last Taken Unknown] Allergy/AdvReac Type Severity Reaction Status Date / Time diphenhydramine HCl AdvReac Itching Verified 02/28/21 16:37 [From Benadryl] Penicillins AdvReac Unknown Verified 02/28/21 16:37 Social History Smoking Status: Current every day smoker tobacco type: cigarettes ROS ROS ED Constitutional Constitutional ED: Denies chills, fever(s) or sweats Eyes Eyes: Denies change in vision ENT ENT ED: Reports other Details: Hearing loss ; Denies dysphagia or sore throat Cardiovascular Cardiovascular: Denies chest pain, leg edema, palpitations or racing heartbeat Respiratory/Chest Respiratory/Chest: Denies cough, dyspnea or dyspnea on exertion Gastrointestinal Gastrointestinal: Denies abdominal pain, diarrhea, nausea or vomiting Genitourinary Genitourinary ED: Denies dysuria, hematuria or urinary frequency Musculoskeletal Musculoskeletal: Denies back pain, extremity pain or neck pain Integumentary Denies rash or wounds Neurologic Neurologic: Denies headache(s), paresthesias or weakness EXAM Physical Exam Const Vital Signs: 02/28/21 16:35 Temperature 98.5 F Temperature Source Temporal Pulse Rate 63 Respiratory Rate 16 Blood Pressure 137/66 H Blood Pressure Mean 89 Pulse Ox 96 Oxygen Delivery Method Room Air Positive well nourished and well developed General Appearance ED: well developed and NAD HEENT Reports moist mucous membranes HEENT Narrative: Right ear: No impaction, there is bulging TM with exudates and erythema behind the right side. No mastoid tenderness. Left ear with mild erythema around the rim, normal TMs, no fluid or exudates. No mastoid tenderness. normocephalic and atraumatic Eyes PERRL, EOMs intact bilaterally and conjunctivae normal General Eye ED: Yes normal appearance of both eyes Neck no lymphadenopathy and supple General: Negative for tenderness Chest Wall Chest: Negative for tenderness Resp normal respiratory effort and normal air movement Effort and Inspection: symmetric chest movement; Negative for respiratory distress Cardio regular rate, regular rhythm and no murmurs Peripheral Pulses: pulses 2+ throughout GI normal to inspection, nondistended, normoactive bowel sounds and non-tender Palpation: Negative for guarding or rebound tenderness present Back/Spine no CVA tenderness and no thoracic nor lumbar tenderness Extremity normal to inspection General Extremety ED: Negative for edema or tenderness General Extremity: Negative for edema Neuro oriented x3 and no sensory deficits noted Sensorium / Orientation: awake and alert Skin no rashes or lesions noted and no wounds MDM MDM MDM Narrative Medical decision making narrative: Patient vital stable exam consistent for otitis media on the right side with exudates. TMs were intact. She started on amoxicillin for 10 days. She is given follow ENT due to hearing loss complaints for outpatient work-up. Patient is being discharged under pandemic conditions under declared global, national and state disaster activation, with limited medical resources. Patient and community understands this. Results discussed in layman's terms to the patient satisfaction. All questions answered in layman's terms. Patient understands importance of follow-up care as directed. Patient has been instructed to return to the ED immediately if new symptoms, problems, or questions occur. We mutually agree with the plan of disposition. The patient understand that they may call or return with any questions or concerns at any time. Discharge Plan Triage Chief Complaint: Ear Problem ED Provider: Darius Denney Dx/Rx/DC Orders Clinical Impression: Acute right otitis media, Hearing loss, COVID-19 virus infection Instructions: Understanding Hearing Loss, ED Otitis Media Antibiotic ... Prescriptions: New amoxicillin 500 mg tablet 1,000 mg PO Q12H Qty: 40 RF: 0 No Action calcium carbonate 500 MG tablet 500 mg PO DAILY@0800 PRN (Reason: Indigestion) RF: 0 azithromycin 500 mg tablet 500 mg PO DAILY 4 Days Qty: 4 RF: 0 Primary Care Provider: Care Physician,No Primary Referrals: Dae Amin MD [STAFF PHYSICIAN] - 5-7 Days Care Physician,No Primary [Primary Care Provider] - Disposition Disposition: Home, Self Care Discharge Date/Time: 02/28/21 17:21
[2021-02-28] MEDS: AMOXICILLIN 500 MG CAPSULE 1000 MG PO (17:18)
== END 2021-02-28 17:21 | disposition home or self-care (01) ==
LOC: ED 17:08
PROVIDERS: Emergency Provider Emergency Medicine; Visit Provider Emergency Medicine
DX: H66.91 Otitis media, unspecified, right ear (principal); F17.210 Nicotine dependence, cigarettes, uncomplicated; U07.1 COVID-19; H91.91 Unspecified hearing loss, right ear
CPT/HCPCS: 99283

== ENCOUNTER 2021-05-20 13:45 | Emergency (ER) | payer OTHER, SELFPAY ==
[2021-05-20 13:46] VITALS: BP 128/79; PULSE 77; RESP 18; TEMP 36.2; O2SAT 97; BMI 37.7
--- NOTE | 2021-05-20 14:00 | ED.VIS.BACK ---
HPI History of Present Illness Chief Complaint: Back Detail of Chief Complaint: Back pain that started today Informant: patient Narrative Narrative: Patient presents the emergency department chief complaint of back pain that started today. Patient states that she started her spring cleaning yesterday. Today patient bent over to remove the canister off the vacuum and then could not straighten back up. Patient denies any pain radiating down her legs. She tried taking Tylenol and placing a Lidoderm patch on her skin and has not had any relief with that. Patient does not typically have back pain issues although her last episode of throwing her back out occurred about 2 years ago. Patient denies any change in bowel or bladder function. She denies urinary symptoms. No history of kidney stones. Pain is positional. Prior similar symptoms: Yes PFSH PFSH Medical History (Updated 05/20/21 @ 14:[address] Yann Rodriguez DO) COVID Home Medications calcium carbonate 500 mg PO DAILY@0800 PRN 05/05/20 [History Last Taken Unknown] azithromycin 500 mg PO DAILY 4 Days #4 tab 08/17/20 [Rx Last Taken Unknown] amoxicillin 1,000 mg PO Q12H #40 tab 02/28/21 [Rx Last Taken Unknown] cyclobenzaprine 10 mg PO TID PRN #20 tablet 05/20/21 [Rx Last Taken Unknown] hydrocodone-acetaminophen 1 tab PO Q4H PRN PRN 2 Days #14 tablet 05/20/21 [Rx Last Taken Unknown] naproxen 500 mg PO BID #14 tab 05/20/21 [Rx Last Taken Unknown] Allergy/AdvReac Type Severity Reaction Status Date / Time diphenhydramine HCl AdvReac Itching Verified 05/20/21 13:47 [From Benadryl] Penicillins AdvReac Unknown Verified 05/20/21 13:47 Social History Smoking Status: Current every day smoker tobacco type: cigarettes ROS ROS ED Constitutional Constitutional ED: Reports systems reviewed and no addt'l complaints, except as documented; Denies body ache(s), change in weight or chills Eyes Eyes: Denies acute decrease in peripheral vision, change in vision, double vision or loss of vision ENT ENT ED: Reports none; Denies ear pain, lip swelling, loss taste/smell, neck pain, otalgia or sore throat Cardiovascular Cardiovascular: Reports none; Denies abdominal pain, chest pain with activity, leg edema, lightheadedness, palpitations, rapid heart rate or syncope Respiratory/Chest Respiratory/Chest: Reports none; Denies change in mental status, dry cough, dyspnea, hemoptysis, shortness of breath at rest or shortness of breath with exertion Gastrointestinal Gastrointestinal: Reports none; Denies abdominal pain, change in stool character, diarrhea, hematemesis, hematochezia, melena, rectal bleeding or vomiting Genitourinary Genitourinary ED: Reports none; Denies abdominal discomfort, anuria, dysuria, genital pain or polyuria Musculoskeletal Musculoskeletal: Reports none and back pain; Denies arthralgias, difficulty walking, extremity pain, muscle weakness or myalgias Integumentary Reports none; Denies abscess or rash Neurologic Neurologic: Reports none; Denies abnormal gait, confusion, focal weakness, frequent falls, headache(s), loss of vision, numbness, paresthesias, radicular pain, vertigo or weakness Psychiatric Psychiatric: Reports systems reviewed and no addt'l complaints, except as documented and none; Denies behavioral changes, confusion, difficulty concentrating, hallucinations, suicidal ideation, tactile hallucinations or visual hallucinations Endocrine Endocrinology: Denies none, cold intolerance, excessive sweating, fatigue or heat intolerance Hematologic/Lymphatic Hematologic/Lymphatic: Reports none; Denies anemia, easy bleeding or easy bruising Allergic/Immunologic Allergic/Immunologic ED: Denies as per HPI, none, lip swelling, mouth swelling, throat swelling, tongue swelling or hives EXAM Physical Exam Const Vital Signs: 05/20/21 13:46 Temperature 97.2 F L Temperature Source Temporal Pulse Rate 77 Respiratory Rate 18 Blood Pressure 128/79 H Blood Pressure Mean 95 Pulse Ox 97 Oxygen Delivery Method Room Air Positive well nourished and well developed General Appearance ED: well developed and NAD HEENT Reports TM's clear and moist mucous membranes normocephalic and atraumatic; Negative for trauma or tenderness Tympanic Membrane ED: Yes TM's clear Eyes PERRL and EOMs intact bilaterally General Eye ED: Negative for pale conjunctiva or scleral icterus Neck no lymphadenopathy, supple and no JVD General: Negative for tenderness Chest Wall inspection of chest normal and palpation of chest normal Chest: Negative for tenderness Resp normal respiratory effort and clear to auscultation bilaterally Effort and Inspection: Negative for respiratory distress or pain with movement Auscultation: Negative for rhonchi, wheezes or diminished lung sounds Cardio regular rate, regular rhythm, S1 normal heart sound, S2 normal heart sound and no murmurs Peripheral Pulses: pulses 2+ throughout GI normal to inspection, nondistended, normoactive bowel sounds, soft to palpation, non-tender, non-distended and no masses Back/Spine no CVA tenderness and no thoracic nor lumbar tenderness Back/Spine Narrative: No tenderness over the thoracic or lumbar spine. She does have some mild tenderness over the left lumbar and thoracic paraspinal musculature that seems to reproduce her pain. Negative straight leg raise bilaterally. Deep tendon reflexes are plus 2 out of 4 bilaterally at the patella and Achilles. Patient has normal L5 extension. Patient has normal sensation to light touch. Extremity normal to inspection General Extremety ED: Negative for edema General Extremity: Negative for edema Neuro oriented x3, CN's II-XII intact bilaterally, no sensory deficits noted and gait normal Sensorium / Orientation: awake, alert, oriented to person, oriented to place and oriented to time Motor Exam: strength 5/5 throughout and strength abnormal Psych mental status grossly normal Skin no rashes or lesions noted and no wounds Discharge Plan Triage Chief Complaint: Back ED Provider: Yann Rodriguez Dx/Rx/DC Orders Clinical Impression: Acute lumbar myofascial strain Instructions: ED Back Pain (Acute or Chronic), ED Back Spasm, No Trauma Prescriptions: New cyclobenzaprine [cyclobenzaprine] 10 MG tablet 10 mg PO TID PRN (Reason: Muscle Spasm) Qty: 20 RF: 0 hydrocodone-acetaminophen [hydrocodone-acetaminophen] 1 TABLET tablet 1 tab PO Q4H PRN PRN (Reason: Pain) 2 Days Qty: 14 RF: 0 naproxen 500 MG tablet 500 mg PO BID Qty: 14 RF: 0 No Action calcium carbonate 500 MG tablet 500 mg PO DAILY@0800 PRN (Reason: Indigestion) RF: 0 azithromycin 500 mg tablet 500 mg PO DAILY 4 Days Qty: 4 RF: 0 amoxicillin 500 mg tablet 1,000 mg PO Q12H Qty: 40 RF: 0 Primary Care Provider: Care Physician,No Primary Referrals: Ambrosio Dumont MD [STAFF PHYSICIAN] - 5-7 Days Care Physician,No Primary [Primary Care Provider] - Disposition Disposition: Home, Self Care
== END 2021-05-20 14:15 | disposition home or self-care (01) ==
LOC: ED 14:11
PROVIDERS: Emergency Provider Emergency Medicine; Visit Provider Emergency Medicine
DX: S39.012A Strain of muscle, fascia and tendon of lower back, initial encounter (principal); X50.1XXA Overexertion from prolonged static or awkward postures, initial encounter; Y93.E9 Activity, other interior property and clothing maintenance; F17.210 Nicotine dependence, cigarettes, uncomplicated
CPT/HCPCS: 99282

== ENCOUNTER 2021-10-26 11:58 | Emergency (ER) | payer OTHER, SELFPAY ==
[2021-10-26 11:59] VITALS: BP 128/80; PULSE 80; RESP 14; TEMP 37.2; O2SAT 98; BMI 37.5
[2021-10-26 12:01] VITALS: BP 128/80; PULSE 80; RESP 14; TEMP 37.2; O2SAT 98
--- NOTE | 2021-10-26 12:15 | EX.ED.DYSGE1 ---
HPI History of Present Illness Chief Complaint: Shortness of Breath Detail of Chief Complaint: Body aches, subjective fever, short of breath, cough Informant: patient Onset/Context/Timing Onset: Days Context: Gradual Onset Current Severity: Moderate Maximum Severity: Moderate Narrative Narrative: Patient presents with 3 days of shortness of breath with cough along with nausea and subjective fever. She states ibuprofen was helping the first couple days but did not seem to help much last evening or today. She has not taken a COVID test. She denies urinary symptoms. [facility] Medical History COVID Home Medications cyclobenzaprine 10 mg tablet 10 mg PO TID PRN Muscle Spasm #20 TABLETS 05/20/21 [Rx Last Taken Unknown] hydrocodone-acetaminophen 5-325mg 5mg-325mg 1 tab PO Q4H PRN PRN Pain 2 days #14 TABLETS 05/20/21 [Rx Last Taken Unknown] naproxen 500 mg tablet 500 mg PO BID #14 tabs 05/20/21 [Rx Last Taken Unknown] Allergy/AdvReac Type Severity Reaction Status Date / Time diphenhydramine HCl AdvReac Itching Verified 10/26/21 11:59 [From Benadryl] Penicillins AdvReac Unknown Verified 10/26/21 11:59 Social History Smoking Status: Current every day smoker tobacco type: cigarettes ROS ROS ED Constitutional Constitutional ED: Reports chills, fever(s) and subjective Eyes Eyes: Denies change in vision or discharge from eye(s) ENT ENT ED: Denies discharge from eye(s), rhinorrhea or sore throat Cardiovascular Cardiovascular: Denies chest pain or palpitations Respiratory/Chest Respiratory/Chest: Reports cough and dyspnea Gastrointestinal Gastrointestinal: Reports nausea; Denies abdominal pain, diarrhea or vomiting Genitourinary Genitourinary ED: Reports other Details: Decreased p.o. intake ; Denies difficulty urinating or dysuria Musculoskeletal Musculoskeletal: Reports myalgias; Denies back pain or extremity pain Integumentary Denies Abrasions or rash Neurologic Neurologic: Reports headache(s) and weakness Allergic/Immunologic Allergic/Immunologic ED: Denies lip swelling or urticaria EXAM Physical Exam Const Vital Signs: 10/26/21 11:59 10/26/21 12:29 10/26/21 12:01 Temperature 99 F 99 F Temperature Source Temporal Temporal Pulse Rate 80 80 Respiratory Rate 14 14 Respiratory Effort Short of Breath Labored Blood Pressure 128/80 H 128/80 H Blood Pressure Mean 96 96 Pulse Ox 98 98 Oxygen Delivery Method Room Air Room Air Room Air Positive well nourished and well developed General Appearance ED: well developed HEENT Reports normocephalic and head/scalp atraumatic Eyes PERRL and EOMs intact bilaterally Neck supple Chest Wall inspection of chest normal and palpation of chest normal Resp normal respiratory effort and clear to auscultation bilaterally Cardio regular rate and regular rhythm GI non-tender Palpation: soft Extremity normal to inspection Neuro oriented x3 and no sensory deficits noted Sensorium / Orientation: alert Motor Exam: strength 5/5 throughout Psych mental status grossly normal Skin no rashes or lesions noted MDM MDM MDM Narrative Medical decision making narrative: Patient given Toradol, Zofran, IV fluids. Lab work obtained along with chest x-ray. COVID swab ordered. Lab Data Attestation: I reviewed the patient's lab results. Labs: Laboratory Results - last 24 hr 10/26/21 10/26/21 12:43 12:43 WBC 4.6 RBC 4.62 Hgb 14.7 Hct 42.8 MCV 92.6 MCH 31.8 MCHC 34.3 RDW Std Deviation 47.4 H RDW Coeff of Sebastian 13.9 Plt Count 175 MPV 10.9 Immature Gran % (Auto) 0.900 Neut % (Auto) 79.8 H Lymph % (Auto) 14.5 L Kendall % (Auto) 4.4 Eos % (Auto) 0.0 Baso % (Auto) 0.4 Absolute Neuts (auto) 3.6 Absolute Lymphs (auto) 0.66 L Nucleated RBC % 0 Sodium 132 L Potassium 4.0 Chloride 102 Carbon Dioxide 23.0 Anion Gap 7 BUN 7 Creatinine 0.72 Estim Creat Clear Calc 95.29 Est GFR (MDRD) Af Amer 114 Est GFR (MDRD) Non-Af 94 BUN/Creatinine Ratio 9.7 L Glucose 88 Calcium 8.2 L Total Bilirubin 0.20 Direct Bilirubin 0.07 AST 30 ALT 34 Alkaline Phosphatase 94 Total Protein 6.3 L Albumin 3.1 L Globulin 3.2 Rapid COVID: Negative Radiography Chest X-Ray - ED: 1 View, Read by ED Physician, Normal, Heart, Lungs and Mediastinum Diagnostic Testing: Clinical Impression(s) from Imaging Studies Chest X-Ray 10/26/21 12:50 IMPRESSION: Normal x-ray examination of the chest. Electronically Signed: Bright Frazier MD at 13:22 EDT , Treatment and Re-Evaluation Narrative: ExamRepeat evaluation patient resting more comfortably. She still complains of bilateral ear pain. There is clear fluid behind the TMs bilaterally. No sign of acute infection. She be given a dose of Tylenol. Lab work reviewed with her and unremarkable. Chest x-ray reveals no focal infiltrate. Radiology interpretation is reviewed and agrees. COVID test is negative. I believe the patient does have a viral syndrome. She will continue Tylenol and ibuprofen at home along with supportive care. Return instructions provided. Discharge Plan Triage Chief Complaint: Shortness of Breath ED Provider: Delores Kearney Dx/Rx/DC Orders Clinical Impression: Viral syndrome Instructions: ED Viral Syndrome (Adult) Prescriptions: No Action cyclobenzaprine [cyclobenzaprine] 10 MG tablet 10 mg PO TID PRN (Reason: Muscle Spasm) Qty: 20 0RF hydrocodone-acetaminophen [hydrocodone-acetaminophen] 1 TABLET tablet 1 tab PO Q4H PRN PRN (Reason: Pain) 2 Days Qty: 14 0RF naproxen 500 MG tablet 500 mg PO BID Qty: 14 0RF Primary Care Provider: Care Physician,No Primary Referrals: Mily Dawson MD [Med Staff - Assistant Manager Quality Management] - As Needed Care Physician,No Primary [Primary Care Provider] - Disposition Disposition: Home, Self Care
[2021-10-26 12:50] LABS: Absolute Lymphocyte Count 0.66 X10^3/uL (0.83-4.51); Absolute Neutrophil Count 3.6 X10^3/uL (2.0-7.7); Basophil# 0.02 X10^3/uL; Basophil% 0.4 % (0-1); Hematocrit 42.8 % (37-47); Hemoglobin 14.7 g/dL (12.0-15.0); Lymphocyte # 0.66 X10^3/ul (0.83-4.51); Lymphocyte % 14.5 % (19-41); Mean Corp Hgb Conc 34.3 g/dL (32-36); Mean Corpuscular Hgb 31.8 pg (27.0-32.0); Mean Corpuscular Volume 92.6 fL (81-99); Mean Platelet Vol. 10.9 fl (6.2-12.0); Monocyte% 4.4 % (0-10); NRBC Flagged by Analyzer 0 % (0-5); Neutrophil # 3.64 X10^3/uL (2.7-7.7); Neutrophil % 79.8 % (47-70); Platelet Count 175 K/mm3 (150-450); RBC Distribution Width CV 13.9 % (11.6-14.6); RBC Distribution Width SD 47.4 fl (35.1-43.9); Red Blood Count 4.62 M/mm3 (4.2-5.4); White Blood Count 4.6 K/mm3 (4.4-11.0)
--- NOTE | 2021-10-26 12:50 | RAD_ITS ---
STUDY: X-RAY CHEST REASON FOR EXAM: Female, 41 years old. Cough TECHNIQUE: Single AP portable view of the chest. COMPARISON: Comparison is made with prior study dated 09/11/2019. FINDINGS: The lungs are clear and expanded. There is no demonstrated pleural abnormality. Normal size heart. Normal mediastinum and shayne. Normal visualized pulmonary arteries. Normal visualized aortic arch and descending thoracic aorta. Normal visualized thoracic spine. Normal visualized ribs, clavicles, and shoulders. There is no demonstrated abnormality of the visualized soft tissue structures of the upper abdomen. RAD/Chest 1 View (Portable) IMPRESSION: Normal x-ray examination of the chest. Electronically Signed: Bright Frazier MD at 13:22 EDT ,
[2021-10-26] MEDS: 0.9% Normal Saline 1,000 ML 1000 ML IV (12:55)
[2021-10-26] MEDS: Ketorolac 30 MG/ML Syringe IV (12:55)
[2021-10-26] MEDS: Ondansetron 4 MG/2 ML Vial IV (12:56)
[2021-10-26 13:07] LABS: AST(SGOT) 30 U/L (15-37); Alanine Aminotransfer ALT/SGPT 34 U/L (13-56); Albumin, Serum 3.1 g/dL (3.2-5.0); Alkaline Phosphatase 94 U/L (45-117); Anion Gap 7 (5-15); BUN 7 mg/dL (7-18); BUN/Creat Ratio 9.7 RATIO (10-20); Bilirubin, Direct 0.07 mg/dL (0.00-0.30); Calcium,Total 8.2 mg/dL (8.5-10.1); Chloride 102 mmol/L (98-107); Creatinine, Serum 0.72 mg/dL (0.55-1.02); EST Glomerular Filtration Rate 94 mL/min (>60); Est Glom Filt Rate - Afr Amer 114 mL/min (>60); Estimated Creatinine Clearance 95.29 ml/min; Globulin 3.2 g/dL (2.2-4.2); Glucose 88 mg/dL (74-106); Protein, Total 6.3 g/dL (6.4-8.2); Sodium Level 132 mmol/L (136-145)
[2021-10-26] MEDS: Acetaminophen 500 MG Tablet 1000 MG PO (14:18)
[2021-10-26 14:20] VITALS: PULSE 84; RESP 18; O2SAT 100
== END 2021-10-26 14:21 | disposition home or self-care (01) ==
PROVIDERS: Emergency Provider Emergency Medicine; Visit Provider Emergency Medicine
DX: B34.9 Viral infection, unspecified (principal); R06.02 Shortness of breath; R11.0 Nausea; Z20.822 Contact with and (suspected) exposure to COVID-19; F17.210 Nicotine dependence, cigarettes, uncomplicated
CPT/HCPCS: 71045; 80048; 80076; 85025; 87811; 99284; J7030; A4216; J2405